=== PATIENT | female | born 1965 | race Caucasian/White ===

== ENCOUNTER 2022-11-06 08:50 | Emergency (ER) | payer OTHER, SELFPAY ==
--- NOTE | 2022-11-06 08:52 | ED.URI ---
HPI - URI/Sore Throat General Chief Complaint: Ear Stated Complaint: Ear infection Time Seen by Provider: 11/06/22 09:01 Source: patient and RN notes reviewed Mode of arrival: ambulatory Limitations: no limitations History of Present Illness HPI Narrative: 57-year-old female presents to the [facility] with complaints of left ear pain/pressure since this morning. Patient reports she has a history of vertigo and has been acting up lately, currently not dizzy. Patient has history of hypertension, seasonal allergies and thyroid disorder. Denies any surgeries in the past. Has started a new nasal spray yesterday. States that she does take Zyrtec daily Related Data Home Medications Medication Instructions Recorded Confirmed amlodipine 10 mg tablet 10 mg PO DAILY 11/06/22 11/06/22 epinephrine 0.3 mg/0.3 mL 0.3 mg IM DIRECTED 11/06/22 11/06/22 injection, auto-injector fluticasone furoate 100 1 inh inhalation DIRECTED 11/06/22 11/06/22 mcg-vilanterol 25 mcg/dose inhalation powder (Breo Ellipta) fluticasone propionate 50 50 mcg intranasal DAILY 11/06/22 11/06/22 mcg/actuation nasal spray,suspension levothyroxine 75 mcg tablet 75 mcg PO DAILY 11/06/22 11/06/22 (Synthroid) montelukast 10 mg tablet 10 mg PO DAILY 11/06/22 11/06/22 olopatadine 0.6 % nasal spray 2 spray intranasal DAILY 11/06/22 11/06/22 sertraline 50 mg tablet 50 mg PO DAILY 11/06/22 11/06/22 Allergies Allergy/AdvReac Type Severity Reaction Status Date / Time erythromycin base Allergy Intermediate STOMACH Verified 11/06/22 08:52 CRAMPS Review of Systems Review of Systems: All systems reviewed & are unremarkable except as noted in HPI and below Constitutional: Constitutional: Reports no additional constitutional complaints Eyes: Eyes: Reports no additional eye complaints ENT: Reports as per HPI Cardiovascular: Cardiovascular: Reports no additional cardiovascular complaints, Denies chest pain and Denies dyspnea Respiratory: Respiratory: Reports no additional respiratory complaints, Denies chest congestion, Denies cough and Denies dyspnea Gastrointestinal: Gastrointestinal: Reports no additional gastrointestinal complaints, Denies abdominal pain, Denies nausea and Denies vomiting Musculoskeletal: Musculoskeletal: Reports no additional musculoskeletal complaints Integumentary/Breasts: Skin/Breast: Reports system reviewed and no additional complaints, except as docu Neurologic: Reports system reviewed and no additional complaints, except as documented Psychiatric: Psychiatric: Reports no additional psychiatric complaints Allergic/Immunologic: Allergic/Immunologic: Reports no additional allergic/immunologic complaints PMFSH Past Medical History Medical History (Updated 11/06/22 @ 18:26 by Shabana Pulido APRN) Asthma History of high blood pressure Thyroid disease Surgical History Surgical History (Updated 11/06/22 @ 18:26 by Shabana Pulido APRN) No pertinent past surgical history Social History Social History (Updated 11/06/22 @ 18:26 by Shabana Pulido APRN) Gender identity (if verbalized by the patient): Female Comments At the time of my signature, I reviewed and agree with the nursing past medical, surgical, social, and family history. There is no relevant family history pertinent to the patient complaint. Exam Const: General: cooperative, healthy appearing, comfortable, no acute distress, well developed, alert and well nourished Nutritional Appearance: well nourished Orientation/consciousness: patient oriented x3 Limitations: no limitations HENMT: Head: normal to inspection Ears: hearing grossly normal bilaterally, external ears normal, EAC's normal and TM abnormal bulging on the left and with fluid behind the TM bilateral; not dull, not erythematous, with no loss of landmarks, not perforated and not retracted Face/Nose/Sinus: Normal external nose present, Normal nares present, Normal nasal mucous membr
[2022-11-06 09:00] VITALS: BP 131/86; PULSE 96; RESP 16; TEMP 36.4; O2SAT 99
[2022-11-06 09:10] VITALS: BP 131/86; PULSE 96; RESP 16; TEMP 36.4; O2SAT 99
== END 2022-11-06 09:12 | disposition home or self-care (01) ==
PROVIDERS: Emergency Provider Nurse Practitioner; PCP Physician Assistant
DX: R42 Dizziness and giddiness (principal); H65.02 Acute serous otitis media, left ear; Z79.899 Other long term (current) drug therapy
CPT/HCPCS: 99213; G0463

== ENCOUNTER 2023-06-13 15:11 | Emergency (ER) | payer OTHER, SELFPAY ==
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
[2023-06-13 15:22] VITALS: BP 128/62; PULSE 78; RESP 14; TEMP 36.4; O2SAT 99
== END 2023-06-13 15:56 | disposition home or self-care (01) ==
PROVIDERS: Emergency Provider Nurse Practitioner
DX: S63.501A Unspecified sprain of right wrist, initial encounter (principal); V89.2XXA Person injured in unspecified motor-vehicle accident, traffic, initial encounter; J45.909 Unspecified asthma, uncomplicated; E07.9 Disorder of thyroid, unspecified
CPT/HCPCS: 73110; 99213; G0463